=== PATIENT | female | born 1995 | race Caucasian/White ===

== ENCOUNTER → 2017-01-03 | Outpatient (CLI) | payer OTHER ==
--- NOTE | 2017-01-03 09:19 | US ---
EXAMINATION TYPE: US OB anatomy transabd Third trimester DATE OF EXAM: 01/03/2017 8:31 AM COMPARISON: NONE HISTORY: LGA TECHNIQUE: Transabdominal (TA) EXAM MEASUREMENTS: GESTATIONAL AGE / DATING Physician Established: (34 weeks/1 days) EDC: 02/13/2017 Dates by LMP: Unknown Dates by First Scan: No Prior Dates by Current Scan for: (36 weeks/1 days) EDC: 01/30/2107 SURVEY IUP: Single PLACENTA: Anterior PREVIA: No previa COSTA: 14.8 cm Normal CERVICAL LENGTH (transabdominal: norm > 3.0cm): 3.2 cm BIOMETRY PRESENTATION: Vertex BPD: 9.0 cm 36 weeks / 4 days HC: 32.7 cm 37 weeks / 1 days AC: 31.8 cm 35 weeks / 6 days FL: 6.7 cm 34 weeks / 4 days ESTIMATED WEIGHT IN GRAMS: 2724 grams ESTIMATED WEIGHT IN LBS/OZS: 6 lbs. 0 oz. WEIGHT PERCENTAGE BASED ON ESTABLISHED DATE: 85 % HC/AC: 1.03 Normal FL/AC: 21 Normal HEART RATE: 149 bpm RHYTHM: Normal ANATOMY SEEN (within normal limits): * Lateral Vent (< 1 cm) 0.7 cm * Cisterna Magna (< 1.1 cm) 0.7 cm * Cerebellum (varies with age) 4.6 cm Midline Falx Cavus Septi Pellucidi Four Chamber Heart Outflow tracts: LVOT/RVOT Stomach Situs Nose / Lips Diaphragm Kidneys (bilateral) Bladder Cord Insert Three Vessel Cord ANATOMY NOT SEEN: Choroid Plexus (bilateral) Longitudinal Spine Transverse Spine Arms (bilateral) Legs (bilateral) TECHNOLOGIST IMPRESSION: Single, viable IUP/ Growth in 85th percentile/ No abnormality seen with tess belle visualized Single live intrauterine gestation is confirmed. Normal cephalad presentation to fetus is identified. There is no ultrasound evidence for placenta previa. Amniotic fluid index is within normal limits. F etal biometry measurements are congruent and within normal limits, estimated weight is upper limits o f normal. Detailed anatomical survey shows no suspicious abnormality during real-time scanning though it is not ed there is suboptimal evaluation of spine and bilateral upper and lower extremities as well as choro id plexus noted due to advanced age and positioning. Still images also show satisfactory visual ization of above structures. IMPRESSION: As above.
== END | disposition home or self-care (01) ==
LOC: RADUSWWP 07:59
PROVIDERS: ATTEND Obstetrics & Gynecology
DX: O36.63X0 Maternal care for excessive fetal growth, third trimester, not applicable or unspecified (principal); Z3A.00 Weeks of gestation of pregnancy not specified
CPT/HCPCS: 76811

== ENCOUNTER 2017-02-11 05:56 | Inpatient (IN) | payer OTHER ==
[2017-02-11] MEDS ORDERED: OXYTOCIN 10 UNIT/ML 1 ML VIAL IM PRN (06:05)
[2017-02-11] MEDS ORDERED: CARBOPROST TROMETHAMINE 250 MCG/ML 1 ML AMP IM PRN (06:05)
[2017-02-11] MEDS ORDERED: METHYLERGONOVINE 0.2 MG/ML 1 ML AMP IM PRN (06:05)
[2017-02-11] MEDS ORDERED: LIDOCAINE 1% (PF) 10 MG/ML (30 ML SDV) SQ PRN (06:05)
[2017-02-11] MEDS ORDERED: TERBUTALINE 1 MG/ML VIAL SQ PRN (06:05)
[2017-02-11] MEDS ORDERED: OXYTOCIN 30 UNITS/500 ML NS 30 UNIT in SALINE 1 500ML.BAG IV SCH (06:15)
[2017-02-11 06:52] VITALS: BMI 26.9
[2017-02-11] MEDS: LACTATED RINGERS 1,000 ML IV SCH ×4 (06:52→23:33)
[2017-02-11 07:10] LABS: Basophils % (A) 0 %; CH 27.4; CHCM 34.4; Eosinophils # (A) 0.1 k/uL (0-0.7); Eosinophils % (A) 1 %; HCT 33.8 % (34.0-46.0); HDW 3.95; HGB 11.6 gm/dL (11.4-16.0); Luc # (Auto) 0.33; Luc % (Auto) 3; Lymphocytes % (A) 20 %; MCH 27.6 pg (25.0-35.0); MCHC 34.4 g/dL (31.0-37.0); MCV 80.1 fL (80.0-100.0); Mean Platelet Volume 7.2; Monocytes # (A) 1.2 k/uL (0-1.0); Monocytes % (A) 12 %; Neutrophils # (A) 6.5 k/uL (1.3-7.7); Neutrophils % (A) 64 %; Poikilocytosis Slight; RBC 4.21 m/uL (3.80-5.40); RDW 14.1 % (11.5-15.5); WBC 10.2 k/uL (3.8-10.6); WBC (Perox) 10.76
[2017-02-11] MEDS: BUTORPHANOL 1 MG/ML 1 ML VIAL IV PRN ×2 (10:33→12:33)
[2017-02-11] MEDS ORDERED: SODIUM CHLORIDE 0.9% 100 ML BAG ONE (15:36)
[2017-02-11] MEDS ORDERED: BUPIVACAINE (PF) 0.25% 30 ML VIAL ONE (15:36)
[2017-02-11] MEDS ORDERED: fentaNYL (PF) 50 MCG/ML 5 ML AMP ONE (15:36)
[2017-02-12] MEDS ORDERED: BENZOCAINE/MENTHOL SPRAY 1 GM/SPRAY AEROSOL TOPICAL PRN (01:03)
[2017-02-12] MEDS ORDERED: diphenhydrAMINE 25 MG CAP PO PRN (01:03)
[2017-02-12] MEDS ORDERED: HYDROCORTISONE 2.5% RECTAL CREAM 30 GM TUBE RECTAL PRN (01:03)
[2017-02-12] MEDS ORDERED: ZOLPIDEM 5 MG TAB PO PRN (01:03)
[2017-02-12] MEDS ORDERED: MEASLES-MUMPS-RUBELLA VACC/PF 12,500 UNIT/0.5 ML VIAL SQ ONE (01:03)
[2017-02-12] MEDS ORDERED: ACETAMINOPHEN TAB 325 MG TAB PO PRN (01:03)
[2017-02-12] MEDS ORDERED: diphenhydrAMINE 50 MG CAP PO PRN (01:03)
[2017-02-12] MEDS ORDERED: BISACODYL 10 MG SUPP RECTAL PRN (01:03)
[2017-02-12] MEDS ORDERED: WITCH HAZEL 1 EACH MED..PAD TOPICAL PRN (01:03)
[2017-02-12] MEDS ORDERED: Acetaminophen-Codeine 300-30mg TAB PO PRN (01:03)
[2017-02-12] MEDS ORDERED: diphenhydrAMINE 50 MG/ML 1 ML VIAL IVP PRN ×2 (01:03)
[2017-02-12] MEDS ORDERED: SIMETHICONE 80 MG CHEWABLE PO PRN (01:03)
[2017-02-12] MEDS ORDERED: LANOLIN CREAM 5 GM TUBE TOPICAL PRN (01:03)
--- NOTE | 2017-02-12 01:06 | P.HPOB ---
History of Present Illness H&P Date: 02/12/17 Chief Complaint: IUP term Patient is a 22-year-old at 39 weeks 5 days gestation who arrives for induction of labor. Her course has been generally unremarkable however she was transferred care to de at approximately 31 weeks. At this time she voices no complaints the heart tones in the 130s and reactive. She was dilated 1 cm 80% effaced -3 station. Artificial rupture members was performed and clear fluid is noted. Pitocin augmentation of labor will be done and she plans she is an epidural for analgesia. On physical exam vital signs are stable and afebrile. Heart regular, lungs clear, extremities without pain. Abdomen is soft gravid uterus is noted. Pertinent labs do include A+ blood type rubella nonimmune hepatitis B surface antigen and group B strep were both negative. Past Medical History Past Medical History: Thyroid Disorder Additional Past Medical History / Comment(s): Anemia, Hypothyroid History of Any Multi-Drug Resistant Organisms: None Reported Past Surgical History: No Surgical Hx Reported Past Anesthesia/Blood Transfusion Reactions: No Reported Reaction Past Psychological History: No Psychological Hx Reported Smoking Status: Never smoker Past Alcohol Use History: None Reported Past Drug Use History: None Reported - Past Family History Sister(s) Additional Family Medical History / Comment(s): Anxiety Medications and Allergies Home Medications Medication Instructions Recorded Confirmed Type Levothyroxine Sodium [Levo-T] 175 mcg PO DAILY 02/11/17 02/11/17 History Allergies Allergy/AdvReac Type Severity Reaction Status Date / Time codeine Allergy Nausea & Verified 02/11/17 06:03 Vomiting Penicillins Allergy Rash/Hives Verified 02/11/17 06:03 Sulfa (Sulfonamide Allergy Anaphylaxis Verified 02/11/17 06:03 Antibiotics) Exam Osteopathic Statement: *. No significant issues noted on an osteopathic structural exam other than those noted in the History and Physical/Consult. - Vital Signs Vital signs: Vital Signs Temp Pulse Resp BP 02/11/17 06:42 97.5 F L 91 16 118/78 Intake and Output 02/11/17 02/11/17 02/12/17 14:59 22:59 06:59 Intake Total 1000 1000 Output Total 550 Balance 1000 450 Intake: IV 1000 1000 Lactated Ringers 1,000 ml 1000 1000 @ 125 mls/hr IV .Q8H JUAN JOSE Rx#:[id number] Output: Urine 550 Straight 250 - OBG Physical Exam Abdomen: bowel sounds normal, no diffuse tenderness, no bruit present, no guarding noted, no hepatomegaly, no splenomegaly, no mass Vulva: both: normal Vagina: normal moisture, no discharge Cervix: no lesion, no discharge Results Result Diagrams: 02/11/17 07:00 Abnormal Lab Results - Last 24 Hours (Table) 02/11/17 Range/Units 07:00 Hct 33.8 L (34.0-46.0) % Monocytes # 1.2 H (0-1.0) k/uL
--- NOTE | 2017-02-12 01:15 | P.PROBDLV ---
Vaginal Delivery Note - . Vaginal Delivery Note: Patient progressed to complete and pushing with spontaneous vaginal delivery of a viable male over a third-degree midline laceration. Falling deliver the head anterior posterior shoulders were delivered gentle downward upper traction followed by the remainder the baby. Mouth nares were then bulb suctioned and baby was placed on mother's abdomen where after proxy 30 seconds the umbilical cord was clamped cut usual fashion. Nursery personnel was then present to assume care. Placenta was then delivered intact. Pitocin was added to the IV. Inspection of perineum revealed a third-degree perineal laceration with a right vaginal wall laceration. Initially a third-degree perineal laceration was repaired in usual fashion. No external anal sphincter muscles appeared to be involved. Once that laceration was repaired with 3-0 Vicryl was used to also reapproximate the right vaginal wall laceration. At the conclusion of the repair I did do a rectal exam to verify involvement. both mother and baby are now stable following delivery. scores were 9 and 9 at one and 5 minutes respectively and the weight was 8 lbs. 0 oz.
[2017-02-12] MEDS: Acetaminophen-Codeine 300-30mg TAB PO PRN ×3 (01:30→17:25)
[2017-02-12 08:06] LABS: Basophils % (A) 0 %; CH 27.3; CHCM 33.7; Eosinophils % (A) 0 %; HCT 30.4 % (34.0-46.0); HDW 3.79; HGB 10.5 gm/dL (11.4-16.0); Luc # (Auto) 0.37; Luc % (Auto) 2; Lymphocytes # (A) 1.2 k/uL (1.0-4.8); Lymphocytes % (A) 6 %; MCH 28.1 pg (25.0-35.0); MCHC 34.5 g/dL (31.0-37.0); MCV 81.5 fL (80.0-100.0); Mean Platelet Volume 7.9; Monocytes # (A) 1.8 k/uL (0-1.0); Monocytes % (A) 10 %; Neutrophils # (A) 15.8 k/uL (1.3-7.7); Neutrophils % (A) 82 %; Poikilocytosis Slight; RBC 3.74 m/uL (3.80-5.40); RDW 14.1 % (11.5-15.5); WBC 19.2 k/uL (3.8-10.6); WBC (Perox) 19.88
[2017-02-12] MEDS: SENNOSIDES-DOCUSATE SODIUM 1 EACH TAB PO SCH ×2 (08:53→20:52)
--- NOTE | 2017-02-12 09:18 | P.PNOBGVD ---
Subjective - Subjective Principal diagnosis: day 1 Interval history: overall is but seems to be doing well. She voices complaints of being sore and tired did not sleep well last night. check of her thyroid reveals her TSH to be elevated at 6.6. We'll plan to have medicine consult for recommendations. She reports that she had been on thyroid medication when she was very young and then stopped taking it a number of years ago. Then during this she restarted at was all the way up to 175 g of Synthroid before stopping as she started feeling sick with the medicine and the . She now relates that she has a history of Sade's thyroiditis and that her treatment has been sporadic due to her decision-making not physicians. She says that the Synthroid made her tired and weak and made her feels badly that is why she does continue to take it despite the fact that the medication interfering should make her feel better as she has hypothyroidism. Otherwise her vital signs are stable and afebrile this morning. We'll continue current care for now. Objective - Latest Vital Signs Latest vital signs: Vital Signs Temp Pulse Resp BP Pulse Ox 02/12/17 08:00 97.9 F 94 16 106/73 02/12/17 02:49 114 H 18 132/58 98 02/12/17 02:19 112 H 18 121/67 02/12/17 01:49 97.9 F 123 H 18 113/71 02/12/17 01:34 97.9 F 129 H 18 122/61 02/12/17 01:19 97.8 F 118 H 18 127/69 02/12/17 01:04 119 H 18 127/69 100 02/12/17 00:49 98.2 F 115 H 18 135/57 98 Intake and Output 02/11/17 02/12/17 02/12/17 22:59 06:59 14:59 Intake Total 1000 Output Total 550 Balance 450 Intake: IV 1000 Lactated Ringers 1,000 ml 1000 @ 125 mls/hr IV .Q8H JUAN JOSE Rx#:[id number] Output: Urine 550 Straight 250 Other: # Voids 1 - Labs Labs: Abnormal Lab Results - Last 24 Hours (Table) 02/12/17 02/12/17 Range/Units 07:49 07:49 WBC 19.2 H (3.8-10.6) k/uL RBC 3.74 L (3.80-5.40) m/uL Hgb 10.5 L (11.4-16.0) gm/dL Hct 30.4 L (34.0-46.0) % Neutrophils # 15.8 H (1.3-7.7) k/uL Monocytes # 1.8 H (0-1.0) k/uL TSH 6.650 H (0.465-4.680) mIU/L
[2017-02-12] MEDS: IBUPROFEN 600 MG TAB PO PRN ×2 (11:40→20:52)
[2017-02-12] MEDS: LACTATED RINGERS 1,000 ML IV SCH (22:49)
[2017-02-13] MEDS: IBUPROFEN 600 MG TAB PO PRN (07:48)
[2017-02-13] MEDS: SENNOSIDES-DOCUSATE SODIUM 1 EACH TAB PO SCH (07:48)
--- NOTE | 2017-02-13 07:56 | P.DS ---
Providers Date of admission: 02/11/17 05:56 Expected date of discharge: 02/13/17 Attending physician: Cuba Durham Consults: 02/12/17 09:15 Consult Physician Routine Consulting Provider: Mitchell Gresham Consult Reason/Comments: thyroid disease Do you want consulting provider notified?: Yes Primary care physician: Stated None Hospital Course: Aleja is seen and evaluated day 1. Overall she is doing well. She reports that her pain is a little bit better. She is are still very tired and has not been sleeping well. Her thyroid again was reviewed with her she is not certain she is going to take medicine even if she is put on it. Will await medicine consult but realistically she is stable for discharge. She does have an school aide that normally cares for this and she is encouraged to return to then if she does not want to wait for medicine to come in and see her for further discussion. Risks of thyroid disease our previously discussed the patient with her school aide and she is aware of all this and has had all of her questions answered. The airfreight operations agent has also been made aware of her hypothyroidism and not taking medication. Otherwise her vital signs are stable and she is afebrile. Heart regular, lungs clear, extremities without pain. Abdomen soft uterus is firm lochia is reported light. Assessment day 1. Plan discharged home follow up with me in 6 weeks. Again she is encouraged to call her school aide or establish with a new primary care provider for further evaluation of her thyroid. However again this is a chronic condition that she is not adequately been controlling for about 6 years now according to her. Prescriptions for Motrin and Tylenol 3 as well as a breast pump have been provided. All questions are answered for her prior to discharge. Patient Condition at Discharge: Good Plan - Discharge Summary New Discharge Prescriptions: Acetaminophen-Codeine 300-30mg [Tylenol #3] 1 tab PO Q4H PRN #30 tablet PRN Reason: Pain Ibuprofen [Motrin] 600 mg PO Q6HR PRN #30 tab PRN Reason: Pain Discharge Medication List Levothyroxine Sodium [Levo-T] 175 mcg PO DAILY 02/11/17 [History] Acetaminophen-Codeine 300-30mg [Tylenol #3] 1 tab PO Q4H PRN #30 tablet [Rx] Ibuprofen [Motrin] 600 mg PO Q6HR PRN #30 tab 02/13/17 [Rx] Follow up Appointment(s)/Referral(s): Cuba Durham DO [Doctor of Osteopathic Medicine] - 6 Weeks Activity/Diet/Wound Care/Special Instructions: No heavy lifting, limit stairs and driving and pelvic rest. If any high temperatures, heavy bleeding, or severe pain call my office Discharge Disposition: HOME SELF-CARE
[2017-02-13 10:27] VITALS: BP 118/74; PULSE 84; RESP 18; TEMP 97.9
[2017-02-13] MEDS ORDERED: LEVOTHYROXINE 100 MCG TAB PO SCH (11:45)
--- NOTE | 2017-02-13 16:55 | CONS ---
DATE OF CONSULTATION: 02/13/2017 REASON FOR CONSULTATION: Medical management requested by Dr. Durham. CONSULTATION: This is a pleasant 22-year-old patient with no real family doctor. Patient has undergone a vaginal delivery with a third-degree tear. Patient had a normal baby boy that was born. She is . I was consulted because patient has known hypothyroidism. Patient was diagnosed at the age of 14. She took it for a few years, then stopped taking it because she did not feel good about it. When she became she started taking the Synthroid yet again, but about 3 weeks prior to delivery she decided to stop taking it; thought she was getting more tired because of the same. Patient lost some hair, feels weak and tired and rundown. REVIEW OF SYSTEMS: CONSTITUTIONAL: Weak, tired. HEENT: Some loss of hair. RESPIRATORY: None. CARDIOVASCULAR: None. GASTROINTESTINAL: None. GENITOURINARY: Some pain in the vaginal area. DERMATOLOGICAL: Not noted. Tattoos are present. HEMATOLOGIC: None. LYMPHATICS: None. PSYCHIATRY: None. NEUROLOGICAL: None. PAST MEDICAL HISTORY: Hypothyroidism, anemia. PAST SURGICAL HISTORY: None. SOCIAL HISTORY: Patient lives with her fiance. No smoking. No alcohol. No use of recreational drugs. FAMILY HISTORY: Noncontributory to presentation. HOME MEDICATIONS: Patient is not taking any medications ( ). ALLERGIES: 1. CODEINE. 2. PENICILLIN. 3. SULFA. On examination, temperature 97.9, pulse 84, respiration 18, blood pressure 118/74, pulse ox noted. GENERAL APPEARANCE: Average build. Sitting up, tired-appearing. EYES: Pupils equal. Conjunctivae pale. HEENT: External appearance of nose and ears normal. Oral cavity normal. NECK: JVD not raised. Mass not palpable. RESPIRATORY: Effort normal. Lungs are clear. CARDIOVASCULAR: First and second sounds normal. No edema. ABDOMEN: Soft, nontender. Liver and spleen not palpable. LYMPHATIC: No lymph node palpable in neck or axillae. PSYCHIATRY: Alert and oriented x3. Mood and affect normal. NEUROLOGICAL: Pupils equal. Cranial nerves grossly intact. Power and sensation grossly intact. INVESTIGATIONS: White count 9.2, hemoglobin 10.5. TSH is 6.66. Free T4 is 0.53. ASSESSMENT: 1. Uncontrolled hypothyroidism in a patient who stopped taking her medications. 2. Normocytic anemia as blood loss during vaginal delivery. 3. Leukocytosis, reactive, due to blood loss. No evidence of infection right now. PLAN: Patient will be given one dose of 200 mcg of Synthroid today and then start on 100 mcg starting tomorrow. Patient was told to get her TSH checked in 4 weeks' time. Other supplements per Dr. Durham. Patient was told to establish with a family doctor near where she lives; that is, near [place], and follow. The same prescriptions were given for both. Thank you, Dr. Durham.
== END 2017-02-13 13:30 | disposition home or self-care (01) | DRG 775 ==
LOC: 4FBP 05:56
PROVIDERS: ADMIT Obstetrics & Gynecology; ATTEND Obstetrics & Gynecology
PROC: 10E0XZZ Delivery of Products of Conception, External Approach (ICD-10-PCS; principal; 2017-02-12)
PROC: 0DQR0ZZ Repair Anal Sphincter, Open Approach (ICD-10-PCS; 2017-02-12)
PROC: 0UQGXZZ Repair Vagina, External Approach (ICD-10-PCS; 2017-02-12)
DX: O99.284 Endocrine, nutritional and metabolic diseases complicating childbirth (principal); E03.9 Hypothyroidism, unspecified; E06.3 Autoimmune thyroiditis; O99.02 Anemia complicating childbirth; O99.12 Other diseases of the blood and blood-forming organs and certain disorders involving the immune mechanism complicating childbirth; O70.20 Third degree perineal laceration during delivery, unspecified; D50.0 Iron deficiency anemia secondary to blood loss (chronic); Z37.0 Single live birth; Z3A.39 39 weeks gestation of pregnancy; Z79.899 Other long term (current) drug therapy; Z88.5 Allergy status to narcotic agent; Z88.0 Allergy status to penicillin; Z88.2 Allergy status to sulfonamides
CPT/HCPCS: 84439; 84443; 85025; 88307; 90707